=== PATIENT | male | born 1985 | race Caucasian/White ===

== ENCOUNTER 2021-11-30 15:22 | Emergency (ER) | payer OTHER ==
[2021-11-30 17:43] LABS: CORONAVIRUS COVID-19 NAA NEGATIVE (NEGATIVE); RESPIRATORY SYNCYTIAL VIR NAA NEGATIVE (NEGATIVE)
[2021-11-30] MEDS ORDERED: Lidocaine 2% Viscous Solution 15 ML UD TOP ONE (18:13)
[2021-11-30] MEDS ORDERED: Amoxicillin 500 MG Cap PO ONE (18:13)
[2021-11-30] MEDS ORDERED: Dexamethasone 4 MG Tab PO ONE (18:14)
[2021-11-30] MEDS ORDERED: Doxycycline Monohydrate 100 MG Cap PO ONE (18:16)
== END 2021-11-30 18:50 | disposition home or self-care (01) ==
LOC: DL.ED 15:22
DX: H66.001 Acute suppurative otitis media without spontaneous rupture of ear drum, right ear (principal); J02.9 Acute pharyngitis, unspecified; Z20.822 Contact with and (suspected) exposure to COVID-19
CPT/HCPCS: 0241U; 87081; 87430; 99283; A9270; 99284

== ENCOUNTER 2022-04-11 08:03 | Emergency (ER) | payer OTHER ==
[2022-04-11] MEDS ORDERED: Tetracaine HCl/PF 0.5% 4 ML Bottle EYELF ONE (08:20)
[2022-04-11] MEDS ORDERED: Fluorescein 1 MG Ophth Strip EYELF ONE (08:21)
[2022-04-11] MEDS ORDERED: Gentamicin 0.3% Ophth Soln 5 ML Bottle EYELF ONE (08:22)
== END 2022-04-11 08:44 | disposition home or self-care (01) ==
LOC: DL.ED 08:03
DX: S05.01XA Injury of conjunctiva and corneal abrasion without foreign body, right eye, initial encounter (principal); Z88.2 Allergy status to sulfonamides; W22.09XA Striking against other stationary object, initial encounter
CPT/HCPCS: 99283; A9270